=== PATIENT | female | born 1960 | race Caucasian/White ===

== ENCOUNTER 2022-08-30 09:55 | Day surgery (SDC) | payer OTHER ==
[~2022-08-30] VITALS: Ht 152.4 cm; Wt 61.7 kg
[~2022-08-30 09:55] MED LIST: MIDAZOLAM 2 MG/2 ML VIAL ONE; diphenhydrAMINE 50 MG/ML VIAL ONE; fentaNYL citrate 0.05 MG/ML VIAL ONE
[2022-08-30] MEDS: MIDAZOLAM 2 MG/2 ML VIAL IVP ONE (10:22)
[2022-08-30] MEDS: fentaNYL citrate 0.05 MG/ML VIAL IVP ONE (10:23)
== END 2022-08-30 11:27 | disposition home or self-care (01) ==
LOC: MDS 09:55 → MMU 09:55 → MDS 11:27
PROVIDERS: ATTEND Internal Medicine Gastroenterology
DX: R13.10 Dysphagia, unspecified (principal); K29.50 Unspecified chronic gastritis without bleeding; K20.90 Esophagitis, unspecified without bleeding; K30 Functional dyspepsia; Z79.899 Other long term (current) drug therapy; Z90.49 Acquired absence of other specified parts of digestive tract; Z20.822 Contact with and (suspected) exposure to COVID-19
CPT/HCPCS: 43239; 87426; J2250; J3010; J1200